=== PATIENT | female | born 1975 | race Caucasian/White ===

== ENCOUNTER 2022-05-30 08:00 | Outpatient (CLI) | payer OTHER, SELFPAY ==
--- NOTE | 2022-05-30 08:15 | CRLHL7_ITS ---
For Patients: As a result of the Century Cures Act, medical imaging exams and procedure reports are released immediately into your electronic medical record. You may view this report before your referring provider. If you have questions, please contact your health care provider. BILATERAL SCREENING MAMMOGRAM WITH COMPUTER-AIDED DETECTION AND TOMOSYNTHESIS TECHNIQUE: CC and MLO views were obtained. These mammographic images have been obtained using full-field digital technique. These mammographic images were interpreted with the benefit of computer-aided detection. Breast Tomosynthesis was used in this interpretation. COMPARISON FILM: 04/18/21, LT DIAG 04/25/21 FINDINGS: The breasts are heterogeneously dense, which may obscure small masses IMPRESSION: There is no radiographic evidence for malignancy. ASSESSMENT: BI-RADS Category 1: Negative RECOMMENDATION: Routine screening mammogram in 1 year. A lay language report of this examination will be provided to the patient. Paul Marie M.D. Diagnostic Radiologist [email or web address] NATHANIEL/Dictated by: Paul Marie MD @ 05/30/2022 12:05:00 PM (Electronically Signed)
== END 2022-05-30 08:01 | disposition home or self-care (01) ==
LOC: MAMMO 08:01
PROVIDERS: PCP Physician Assistant Medical; Visit Provider Physician Assistant Medical
DX: Z12.31 Encounter for screening mammogram for malignant neoplasm of breast (principal); R92.2 Inconclusive mammogram
CPT/HCPCS: 77063; 77067

== ENCOUNTER 2022-06-06 14:39 | Outpatient (CLI) | payer OTHER, SELFPAY ==
[2022-06-06 12:28] LABS: Albumin* 4.2 g/dL (3.3-5.0); Chloride* 102 mmol/L (96-114)
[2022-06-06 12:29] LABS: Potassium* 4.6 mmol/L (3.6-5.1); Sodium* 138 mmol/L (135-149)
[2022-06-06 12:31] LABS: Carbon Dioxide* 29 mmol/L (20-32); Cholesterol* 194 mg/dL (90-199); Creatinine* 0.7 mg/dL (0.5-1.5); Estimated Glomerular Filt Rate 109 ml/min; Total Protein* 7.3 g/dL (6.0-8.3)
[2022-06-06 12:32] LABS: Alanine Aminotransferase* 18 U/L (4-35); Alkaline Phosphatase* 57 U/L (40-150); Aspartate Amino Transferase* 24 U/L (12-35); Bilirubin Total* 0.2 mg/dL (0.1-1.5); Blood Urea Nitrogen* 17 mg/dL (5-24); Calcium* 9.1 mg/dL (8.4-10.6); Glucose* 94 mg/dL (60-115); Triglycerides* 86 mg/dL (40-149)
[2022-06-06 12:33] LABS: HDL Cholesterol* 84 mg/dL (>=50); LDL Cholesterol Calculated 93 mg/dL (<100)
== END 2022-06-06 14:40 | disposition home or self-care (01) ==
PROVIDERS: PCP Physician Assistant Medical; Visit Provider Physician Assistant Medical
DX: Z00.00 Encounter for general adult medical examination without abnormal findings (principal); Z13.6 Encounter for screening for cardiovascular disorders; Z13.29 Encounter for screening for other suspected endocrine disorder
CPT/HCPCS: 80053; 80061; 84443

== ENCOUNTER 2022-07-03 14:53 | Outpatient (CLI) | payer OTHER, SELFPAY ==
--- NOTE | 2022-07-03 15:00 | CRLHL7_ITS ---
For Patients: As a result of the Century Cures Act, medical imaging exams and procedure reports are released immediately into your electronic medical record. You may view this report before your referring provider. If you have questions, please contact your health care provider. Indication: localized enlarged lymph nodes Technique: Grayscale and color Doppler ultrasound of the left neck performed in the area of palpable concern. Comparison: None Findings: A normal lymph node is present within the left neck measuring 1.1 x 0.3 x 0.9 cm. No abnormal vascularity. No suspicious findings. Impression: Normal left cervical lymph node. Dictated by Paul Marie MD @ 07/03/2022 3:33:14 PM (Electronically Signed)
--- NOTE | 2022-07-03 16:00 | CRLHL7_ITS ---
For Patients: As a result of the Century Cures Act, medical imaging exams and procedure reports are released immediately into your electronic medical record. You may view this report before your referring provider. If you have questions, please contact your health care provider. INDICATION: Lymphadenopathy TECHNIQUE: Chest 2 views COMPARISON: None FINDINGS: Cardiovascular and mediastinum: Heart size and vasculature are normal in caliber and appearance. Lungs and pleural spaces: Lungs are clear. No sign of infiltrate or mass. No sign of pleural effusion. No pneumothorax. Bones and soft tissues: No significant findings. IMPRESSION: Normal chest films. Dictated by Paul Marie MD @ 07/03/2022 3:47:18 PM (Electronically Signed)
== END 2022-07-03 14:54 | disposition home or self-care (01) ==
LOC: US 14:54
PROVIDERS: PCP Physician Assistant Medical; Visit Provider Physician Assistant Medical
DX: R59.0 Localized enlarged lymph nodes (principal)
CPT/HCPCS: 71046; 76536

== ENCOUNTER 2022-07-25 10:06 | Outpatient (CLI) | payer OTHER, SELFPAY ==
[2022-07-25 14:33] LABS: Iron* 166 ug/dL (37-170)
[2022-07-25 14:42] LABS: Percent Iron Saturation 42 % (20-50); Total Iron Binding Capacity 396 ug/dL (265-497)
[2022-07-25 15:27] LABS: Vitamin B12* 507 pg/mL (243-894)
[2022-07-30 19:25] LABS: Folate, Serum 21.7 ng/mL (>=5.9)
== END 2022-07-25 10:07 | disposition home or self-care (01) ==
PROVIDERS: PCP Physician Assistant Medical; Visit Provider Physician Assistant Medical
DX: D64.9 Anemia, unspecified (principal)
CPT/HCPCS: 82607; 82746; 83540; 83550

== ENCOUNTER 2022-12-05 09:23 | Outpatient (CLI) | payer OTHER, SELFPAY | END 2022-12-05 09:24 | disposition home or self-care (01) | PROVIDERS: PCP Physician Assistant Medical; Visit Provider Internal Medicine | DX: Z12.11 Encounter for screening for malignant neoplasm of colon (principal); K63.5 Polyp of colon; K64.8 Other hemorrhoids | CPT/HCPCS: 45380; 88305; J2250; J3010 ==

== ENCOUNTER 2023-12-03 10:45 | Outpatient (CLI) | payer OTHER, SELFPAY | END 2023-12-03 10:46 | disposition home or self-care (01) | LOC: LKVREF 10:46 | PROVIDERS: PCP Physician Assistant Medical; Visit Provider Physician Assistant Medical | DX: K90.0 Celiac disease (principal) | CPT/HCPCS: 80053; 80061; 82728; 83540; 83550; 84443; 86258; 86364 ==

== ENCOUNTER 2024-01-22 07:03 | Outpatient (CLI) | payer OTHER, SELFPAY ==
--- NOTE | 2024-01-22 07:15 | US_ITS ---
Patient: CIRO WATRES Facility:?[facility] Patient ID:?[id number] Site Patient ID:?[id number]. Site :?1975 Study:?US-Pelvis PELVIS TA & TV-01/22/2024 7:52:16 AM Ordering Physician:?ROBIN KAPADIA Final Report: INDICATION: Irregular menstruation TECHNIQUE: Transabdominal and transvaginal scanning was performed. Transvaginal scanning was performed to optimally evaluate the endometrium and adnexa. Ovarian blood flow was evaluated with color-flow doppler. COMPARISON: None. FINDINGS: The uterus is borderline enlarged and normal in shape. The uterus measures 9.0 x 4.1 x 6.1 cm. No myometrial mass is evident. The endometrial stripe is normal in thickness at 8 mm. The right ovary has been removed. A complex, likely hemorrhagic 1.6 cm left ovarian cyst is noted. The left ovary measures 3.8 x 2.0 x 2.0 cm. Left ovarian blood flow is demonstrated with color-flow doppler. No adnexal mass is evident. No free fluid is demonstrated. IMPRESSION: 1. Borderline enlarged uterus and normal thickness endometrial stripe at 8 mm. 2. Postop right nephrectomy. 3. Complex, presumably hemorrhagic 1.6 cm left ovarian cyst. Dictated by Bam Coe MD @ 01/23/2024 6:55:01 AM Signed by:?Bam Coe MD @01/23/2024 6:55:01 AM (Electronic Signature)
== END 2024-01-22 07:04 | disposition home or self-care (01) ==
LOC: US 07:04
PROVIDERS: PCP Physician Assistant Medical; Visit Provider Physician Assistant Medical
DX: N92.6 Irregular menstruation, unspecified (principal); N83.202 Unspecified ovarian cyst, left side; D64.9 Anemia, unspecified
CPT/HCPCS: 76830; 76856

== ENCOUNTER 2024-02-25 12:44 | Outpatient (CLI) | payer OTHER, SELFPAY ==
--- NOTE | 2024-02-25 13:00 | MM_ITS ---
Patient: CIRO WATERS Facility:?[facility] Patient ID:?[id number] Site Patient ID:?[id number]. Site :?1975 Study:?XRay-Breast Bilateral 3D W/CAD-02/25/2024 1:16:54 PM Ordering Physician:Haley Final Report: BILATERAL DIGITAL SCREENING MAMMOGRAM WITH TOMOSYNTHESIS AND COMPUTER-AIDED DETECTION CLINICAL HISTORY: Routine screening exam. COMPARISON: 05/30/2022, 04/25/2021. TECHNIQUE: Digital mammogram in CC and MLO projections including computer-aided detection (CAD). Tomosynthesis utilized. BREAST COMPOSITION: The breasts are heterogeneously dense, which may obscure small masses. FINDINGS: RIGHT Breast: No suspicious findings. LEFT Breast: Ovoid density retroareolar plane 4 cm from the nipple, in a different location than the prior callback. IMPRESSION: LEFT breast asymmetry/mass. RECOMMENDATIONS: Additional mammographic views of the LEFT breast including 3D spot compression CC/MLO. LEFT breast ultrasound may also be required. BI-RADS Category 0: Incomplete: Need Additional Imaging Evaluation and/or Prior Mammograms for Comparison The [facility] will contact the patient for follow-up. A lay language report of this examination will be provided to the patient. Dictated by Paul Marie MD @ 02/26/2024 11:12:54 AM rukhsana/Dictated by: Paul Marie MD @ 02/26/2024 11:12:00 AM Signed by:?Paul Marie MD @02/26/2024 12:36:26 PM (Electronic Signature)
== END 2024-02-25 12:45 | disposition home or self-care (01) ==
LOC: MAMMO 12:44
PROVIDERS: PCP Physician Assistant Medical; Visit Provider Physician Assistant Medical
DX: Z12.31 Encounter for screening mammogram for malignant neoplasm of breast (principal); N63.20 Unspecified lump in the left breast, unspecified quadrant; R92.2 Inconclusive mammogram
CPT/HCPCS: 77063; 77067

== ENCOUNTER 2024-03-11 07:43 | Outpatient (CLI) | payer OTHER, SELFPAY ==
--- NOTE | 2024-03-11 07:45 | MM_ITS ---
Patient: CIRO WATERS Facility:?[facility] Patient ID:?[id number] Site Patient ID:?[id number] Site :?1975 Study:?XRay-Breast Left 3D W/CAD-03/11/2024 8:34:36 AM Ordering Physician:Haley Final Report: DIGITAL DIAGNOSTIC LEFT MAMMOGRAM USING TOMOSYNTHESIS AND COMPUTER-AIDED DETECTION LEFT BREAST ULTRASOUND CLINICAL HISTORY: LEFT breast mass/asymmetry. COMPARISON: 02/25/2024. TECHNIQUE: Digital LEFT mammogram in two projections. Tomosynthesis and computer-aided detection utilized. Real-time ultrasound imaging of LEFT breast with imaging documentation. BREAST COMPOSITION: The breast is heterogeneously dense, which may obscure small masses. FINDINGS: 3D spot compression CC/MLO LEFT breast mammogram images submitted. Persistent ovoid density within the LEFT breast without architectural distortion. A few scattered benign calcifications are present. Targeted LEFT breast ultrasound performed at 12 o`clock 1 cm from the nipple. In this location, there is a simple anechoic cyst at posterior depth measuring 14 x 8 x 14 millimeters. No suspicious findings. IMPRESSION: Benign simple cyst LEFT breast 12 o`clock 1 cm from the nipple measuring 14 x 8 x 14 millimeters. No evidence of malignancy. RECOMMENDATIONS: Annual bilateral screening mammography. Results and recommendations discussed with the patient. BI-RADS Category 2: Benign A lay language report of this examination will be provided to the patient. Dictated by Paul Marie MD @ 03/11/2024 11:10:02 AM jj/Dictated by: Paul Marie MD @ 03/11/2024 11:10:00 AM Signed by:?Paul Marie MD @03/11/2024 12:59:19 PM (Electronic Signature)
--- NOTE | 2024-03-11 08:15 | US_ITS ---
Patient: CIRO WATERS Facility:?[facility] Patient ID:?[id number] Site Patient ID:?[id number] Site :?1975 Study:?US-Breast Left DSM TO READ-03/11/2024 8:23:26 AM Ordering Physician:?ROBIN KAPADIA Final Report: PLEASE SEE DIGITAL DIAGNOSTIC LEFT MAMMOGRAM PERFORMED SAME DAY CRL:[email or web address] parr/Dictated by: Paul Marie MD @ 03/11/2024 11:10:00 AM Signed by:?Paul Marie MD @03/11/2024 12:59:17 PM (Electronic Signature)
== END 2024-03-11 07:44 | disposition home or self-care (01) ==
LOC: MAMMO 07:43
PROVIDERS: PCP Physician Assistant Medical; Visit Provider Physician Assistant Medical
DX: N63.20 Unspecified lump in the left breast, unspecified quadrant (principal); N60.02 Solitary cyst of left breast; R92.8 Other abnormal and inconclusive findings on diagnostic imaging of breast
CPT/HCPCS: 76642; 77065; G0279

== ENCOUNTER 2024-12-02 11:45 | Outpatient (CLI) | payer OTHER, SELFPAY ==
[2024-12-02 23:40] LABS: Chlamydia DNA Amplified* NOT DETECTED (No Detected); GC DNA Amplified* NOT DETECTED (No Detected)
== END 2024-12-02 11:46 | disposition home or self-care (01) ==
PROVIDERS: PCP Physician Assistant Medical; Visit Provider Obstetrics & Gynecology
DX: N89.8 Other specified noninflammatory disorders of vagina (principal)
CPT/HCPCS: 87086; 87491; 87591

== ENCOUNTER 2025-06-01 16:02 | Outpatient (CLI) | payer OTHER, SELFPAY ==
[2025-06-03 19:27] LABS: HPV Source Cervical
[2025-06-06 11:23] LABS: Pap Test Digital Imaging Done
== END 2025-06-01 16:03 | disposition home or self-care (01) ==
PROVIDERS: PCP Physician Assistant Medical; Visit Provider Physician Assistant Medical
DX: Z01.419 Encounter for gynecological examination (general) (routine) without abnormal findings (principal); N92.6 Irregular menstruation, unspecified; N95.1 Menopausal and female climacteric states; Z11.59 Encounter for screening for other viral diseases; Z11.4 Encounter for screening for human immunodeficiency virus [HIV]; Z13.21 Encounter for screening for nutritional disorder
CPT/HCPCS: 80048; 82306; 82670; 84144; 84443; 86376; 86592; 86703; 86803; 87624; 87625; 88141; 88142; 88175

== ENCOUNTER 2025-06-20 13:27 | Outpatient (CLI) | payer OTHER, SELFPAY ==
--- NOTE | 2025-06-20 13:40 | CRLHL7_ITS ---
For Patients: As a result of the Century Cures Act, medical imaging exams and procedure reports are released immediately into your electronic medical record. You may view this report before your referring provider. If you have questions, please contact your health care provider. BILATERAL DIGITAL SCREENING MAMMOGRAM WITH COMPUTER-AIDED DETECTION AND TOMOSYNTHESIS CLINICAL HISTORY: : Routine screening exam. COMPARISON: 03/11/2024, 02/25/2024, 05/30/2022 TECHNIQUE: Digital mammogram in CC and MLO projections including computer-aided detection (CAD). Tomosynthesis was used in this interpretation. BREAST COMPOSITION: The breasts are heterogeneously dense, which may obscure small masses. FINDINGS: RIGHT Breast: No suspicious findings LEFT Breast: Nodular densities within the lower outer quadrant 3 cm from the nipple, probable cysts. IMPRESSION: LEFT breast asymmetry/mass. RECOMMENDATIONS: Left breast ultrasound recommended. The [facility] will contact the patient. A lay language report of this examination will be provided to the patient. BI-RADS Category 0: Incomplete: Need Additional Imaging Evaluation Dictated by Paul Marie MD @ 06/21/2025 10:06:27 AM (Electronically Signed)
--- NOTE | 2025-06-20 14:00 | CRLHL7_ITS ---
For Patients: As a result of the Century Cures Act, medical imaging exams and procedure reports are released immediately into your electronic medical record. You may view this report before your referring provider. If you have questions, please contact your health care provider. INDICATION: Palpable, pulsatile aorta TECHNIQUE: Ultrasound aorta with color Doppler analysis. COMPARISON: None FINDINGS: The proximal abdominal aorta measures 2.1 x 2.6 cm, mid aorta measures 1.7 x 1.6 cm, distal aorta measures 1.6 x 1.7 cm, right common iliac artery measures 1.2 x 1.0 cm, and the left common iliac artery measures 0.8 x 1.1 cm. There are no periaortic abnormalities evident. IMPRESSION: Normal ultrasound of the abdominal aorta. No sign of aneurysm. Dictated by Ashutosh Jama MD @ 06/20/2025 4:02:38 PM (Electronically Signed)
--- NOTE | 2025-06-20 15:00 | CRLHL7_ITS ---
For Patients: As a result of the Century Cures Act, medical imaging exams and procedure reports are released immediately into your electronic medical record. You may view this report before your referring provider. If you have questions, please contact your health care provider. INDICATION: Follow-up left ovarian cyst COMPARISON: 01/22/2024 TECHNIQUE: 2D reese-scale and color Doppler images were acquired of the pelvis using a transabdominal and transvaginal approach. Transvaginal imaging performed to better visualize the endometrial stripe and left ovary. FINDINGS: Sonographic images demonstrate a normal size and smooth outer contour of the uterus. Uterus measures 10.0 cm in length by 3.8 cm in AP diameter by 4.6 cm in transverse dimension. The myometrium has a normal uniform echotexture. Endometrium measures 2.4 millimeters. Echogenic structure within the endometrium measures 9 x 3 x 4 millimeters. Mild endometrial fluid noted. Normal position of an IUD within the endometrial canal. The right ovary is absent and the left ovary measures 2.4 x 2.0 x 2.2 cm. The left ovary demonstrates normal arterial and venous blood flow on color Doppler analysis. There are no suspicious fluid collections within the cul-de-sac. Simple left ovarian cyst measures 1.4 x 1.3 x 1.2 cm. Echogenic focus within the left ovary measures 6 x 4 x 5 millimeters. IMPRESSION: Simple left ovarian cyst measures 1.4 cm. 6 millimeter echogenic focus left ovary, probable dermoid. Endometrial polyp appears to be present measuring 9 millimeters. Dictated by Paul Marie MD @ 06/20/2025 4:19:59 PM (Electronically Signed)
== END 2025-06-20 13:28 | disposition home or self-care (01) ==
LOC: MAMMO 13:27
PROVIDERS: PCP Physician Assistant Medical; Visit Provider Physician Assistant Medical
DX: N83.292 Other ovarian cyst, left side (principal); N84.0 Polyp of corpus uteri; Z13.6 Encounter for screening for cardiovascular disorders; R19.00 Intra-abdominal and pelvic swelling, mass and lump, unspecified site; Z12.31 Encounter for screening mammogram for malignant neoplasm of breast; N63.20 Unspecified lump in the left breast, unspecified quadrant; R92.333 Mammographic heterogeneous density, bilateral breasts
CPT/HCPCS: 76706; 76830; 76856; 77063; 77067

== ENCOUNTER 2025-06-23 11:56 | Outpatient (CLI) | payer OTHER, SELFPAY ==
--- NOTE | 2025-06-23 12:00 | CRLHL7_ITS ---
For Patients: As a result of the Cures Act, medical imaging exams and procedure reports are released immediately into your electronic medical record. You may view this report before your referring provider. If you have questions, please contact your health care provider. LEFT BREAST ULTRASOUND CLINICAL HISTORY: LEFT breast mass/asymmetry. COMPARISON: 06/20/2025. TECHNIQUE: Real-time ultrasound imaging of LEFT breast with imaging documentation. FINDINGS: Targeted LEFT breast ultrasound performed at 5 o`clock, 3 cm from the nipple. In this location, there are two juxtaposed cysts which measure 11 x 8 x 10 mm and 10 x 8 x 9 mm. No abnormal vascularity. No shadowing lesion. IMPRESSION: Benign cysts LEFT breast 5 o`clock, 3 cm from the nipple. No evidence of malignancy. RECOMMENDATIONS: Routine screening mammography. Results and recommendations were discussed with the patient at the time of the exam. A lay language report of this examination will be provided to the patient. BI-RADS Category 2: Benign Dictated by Paul Marie MD @ 06/23/2025 12:23:35 PM /sp SP/Dictated by: Paul Marie MD @ 06/23/2025 12:23:00 PM (Electronically Signed)
== END 2025-06-23 11:57 | disposition home or self-care (01) ==
LOC: US 11:56
PROVIDERS: PCP Physician Assistant Medical; Visit Provider Physician Assistant Medical
DX: N63.20 Unspecified lump in the left breast, unspecified quadrant (principal); N60.02 Solitary cyst of left breast; R92.8 Other abnormal and inconclusive findings on diagnostic imaging of breast
CPT/HCPCS: 76642

== ENCOUNTER 2025-07-05 09:06 | Day surgery (SDC) | payer OTHER, SELFPAY ==
[2025-07-05 09:15] VITALS: BMI 27.1
[2025-07-05 09:25] VITALS: BP 124/79; PULSE 76; RESP 14; TEMP 36.7; O2SAT 100
[2025-07-05] MEDS: SODIUM CHLORIDE 0.9 % (FLUSH) 10 ML SYRINGE IVF (09:45)
[2025-07-05 09:46] LABS: Hemoglobin* 12.3 gm/dL (12.0-16.0)
[2025-07-05] MEDS: LACTATED RINGERS 500 ML 500 ML 75 ML IV (09:54)
--- NOTE | 2025-07-05 10:30 | W.PM.H&PU ---
History & Physical Update History & Physical Update H&P Reviewed and patient assessed: No changes noted
--- NOTE | 2025-07-05 10:32 | P.GYNPRC_ITS ---
Procedure Note Time Seen by Provider: 10:33 Date of procedure: 07/05/25 Will [facility] bill your pro fee for this procedure?: Yes Procedure Description: Preoperative diagnosis: 49 year-old with likely endometrial polyp on ultrasound in the setting of abnormal uterine bleeding. AUB currently controlled with Mirena IUD Postoperative diagnosis: Same Procedure: Hysteroscopy, dilation and curettage, polypectomy, Mirena IUD removal and reinsertion. Anesthesia: Conscious sedation with paracervical block. Surgeon:Lorie Conklin MD Estimated blood loss: <5 mL Specimen: Endometrial curettings to pathology. UOP: 300 mL IVF: 450 mL Findings: Exam under anesthesia: Cervix palpates normal. Uterus: anteverted position, 7 week size, mobile, without nodularity/masses palpable. Adnexa were without fullness or nodularity. On hysteroscopy: Normal bilateral tubal ostia. Endometrium overall appears thin with possible polyp on posterior aspect of the uterus. Procedure: Camille was taken to the operating where conscious sedation was found to be adequate. She was placed in the dorsal lithotomy position. An exam under anesthesia was performed with findings stated above. She was then prepped and draped in normal sterile manner. A bivalve metal speculum was placed in the vaginal canal. The cervix and vaginal canal appear normal. A paracervical block was placed using 1% lidocaine with epinephrine: 5 mL injected at the 4 and 8 o'clock positions on the cervix. The anterior lip of the cervix was then grasped with a long tenaculum. The cervix was dilated to Hegar 6. The uterus sounded to 9 cm. The hysteroscope advanced into the uterus and a diagnostic hysteroscopy was performed with findings stated above. Normal saline was used as the insufflation medium. Soft tissue shaver was used to perform polypectomy and global curetting. The uterus and documented a normal appearing uterine cavity at the end of the procedure. The IUD was loaded in a sterile manner and advanced into position. Hysteroscope use to visualize appropriate positioning of the IUD. The strings were visualized and cut to appropriate length: 3-4 cm. Unfortunately, the strings did not cut completely and the IUD was expelled while the scissors were being retracted. Another IUD was placed in the same manner and hysteroscope used to confirm appropriate placement. IUD strings cut to 3-4 cm. Complications encountered: None. Fluid deficit at the end of the procedure 120mL. Total fluid: 700mL The hysteroscope and tenaculum clamp were removed from the uterus and cervix. Excellent hemostasis noted. Nothing was used for hemostasis. The patient tolerated the procedure well. Sponge, lap and instruments counts were correct at the end of the procedure. The patient was awakened from anesthesia and taken to the recovery area in stable condition. Surgical debrief performed and specimen reviewed at the end of the procedure.
[2025-07-05] MEDS: LIDOCAINE 1%-EPI 1:100,000 20 ML INFILTRATI (10:58)
--- NOTE | 2025-07-05 11:24 | P.ANES_ITS ---
Anesthesia Charges Start Date/Time Anesthesia Start Date: 07/05/25 Anesthesia Start Time: 10:34 Stop Date/Time Anesthesia Stop Date: 07/05/25 Anesthesia Stop Time: 11:28 Coding CPT Codes CPT Codes: ANESTH HYSTEROSCOPE/GRAPH - 53097 ([id number]) P2 - PATIENT W/MILD SYST DISEASE, QK - PURCHASING INTERNSHIP 2-4 CNCRNT ANES PROC, QX - SATELLITE DISH TECHNICIAN SVC W/ MD MED DIRECTION
--- NOTE | 2025-07-05 11:24 | W.ANESCHARGE ---
Anesthesia Charges Start Date/Time Anesthesia Start Date: 07/05/25 Anesthesia Start Time: 10:34 Stop Date/Time Anesthesia Stop Date: 07/05/25 Anesthesia Stop Time: 11:28 Coding CPT Codes CPT Codes: ANESTH HYSTEROSCOPE/GRAPH - 56089 ([id number]) P2 - PATIENT W/MILD SYST DISEASE, QK - MEDICAL RECORD ASSISTANT 2-4 CNCRNT ANES PROC, QX - BRANCH ACCOUNT EXECUTIVE SVC W/ MD MED DIRECTION
--- NOTE | 2025-07-05 11:25 | P.ANES_ITS ---
Anesthesia Charges Start Date/Time Anesthesia Start Date: 07/05/25 Anesthesia Start Time: 10:34 Stop Date/Time Anesthesia Stop Date: 07/05/25 Anesthesia Stop Time: 11:28 Coding CPT Codes CPT Codes: ANESTH HYSTEROSCOPE/GRAPH - 69936 ([id number]) P1 - NORMAL HEALTHY PATIENT, QK - GLUING MACHINE FEEDER 2-4 CNCRNT ANES PROC, QX - LIQUID COMPOUNDER SVC W/ MED DIRECTION
--- NOTE | 2025-07-05 11:25 | W.ANESCHARGE ---
Anesthesia Charges Start Date/Time Anesthesia Start Date: 07/05/25 Anesthesia Start Time: 10:34 Stop Date/Time Anesthesia Stop Date: 07/05/25 Anesthesia Stop Time: 11:28 Coding CPT Codes CPT Codes: ANESTH HYSTEROSCOPE/GRAPH - 36406 ([id number]) P1 - NORMAL HEALTHY PATIENT, QK - REMOTE RECRUITER 2-4 CNCRNT ANES PROC, QX - CLOTH COVERED HELMET PULLER SVC W/ MED DIRECTION
[2025-07-05 11:30] VITALS: BP 113/73; PULSE 89; RESP 16; TEMP 36.7; O2SAT 93
[2025-07-05 11:45] VITALS: BP 122/60; PULSE 80; RESP 14; O2SAT 100
[2025-07-05 12:00] VITALS: BP 123/81; PULSE 73; RESP 16; O2SAT 100
== END 2025-07-05 12:23 | disposition home or self-care (01) ==
PROVIDERS: PCP Physician Assistant Medical; Visit Provider Obstetrics & Gynecology
PROC: 0UDB8ZZ Extraction of Endometrium, Via Natural or Artificial Opening Endoscopic (ICD-10-PCS; CPT 58558; principal; 2025-07-05 10:15)
DX: N93.8 Other specified abnormal uterine and vaginal bleeding (principal); N84.0 Polyp of corpus uteri; Z30.433 Encounter for removal and reinsertion of intrauterine contraceptive device
CPT/HCPCS: 58558; 58301; 58300; 00952; 36415; 85018; 86850; 86900; 86901; 88305; C1782; J7120; J7298